=== PATIENT | female | born 1995 | race Caucasian/White ===

== ENCOUNTER 2017-07-25 17:07 | Emergency (ER) | payer OTHER ==
[~2017-07-25] VITALS: Ht 152.4 cm; Wt 60.3 kg
[2017-07-25 17:12] VITALS: BP 126/95
--- NOTE | 2017-07-25 17:49 | NUR ---
PT AMBULATED TO [facility]
--- NOTE | 2017-07-25 17:55 | NUR ---
PATIENT PRESENTS TO ED WITH C/O RASH ON LT SIDE OF HER ABD;PT STATES HER BOYFREIND HAS A SHINGLES AND SHE JUST WANT TO BE CHECK IF SHE'S OKAY".DENIES N/V/D; SKIN IS PINK/WARM/DRY; AAOX4 WITH EVEN AND STEADY GAIT; LUNGS CLEAR BL; HR EVEN AND REGULAR; PT DENIES ANY FEVER, CP, SOB, OR COUGH AT THIS TIME; PATIENT STATES PAIN OF 1/10 AT THIS TIME;PATIENT POSITIONED FOR COMFORT; ER MD MADE AWARE OF PT STATUS.
--- NOTE | 2017-07-25 19:16 | NUR ---
Pt report given to CHARGE NURSE CATHY. Transfer of care at this time.
[2017-07-25 19:40] VITALS: BP 17/63
--- NOTE | 2017-07-25 19:40 | NUR ---
Patient discharged with v/s stable. Written and verbal after care instructions given and explained. Patient alert, oriented and verbalized understanding of instructions. Ambulatory with steady gait. All questions addressed prior to discharge. ID band removed. Patient advised to follow up with PMD. Rx of Hydrocortizone cream given. Patient educated on indication of medication including possible reaction and side effects. Opportunity to ask questions provided and answered.
== END 2017-07-25 19:40 | disposition home or self-care (01) ==
LOC: MED 17:07
DX: L25.9 Unspecified contact dermatitis, unspecified cause (principal)
CPT/HCPCS: 99283

== ENCOUNTER 2019-03-11 13:35 | Emergency (ER) | payer OTHER ==
[~2019-03-11] VITALS: Ht 152.4 cm; Wt 63.5 kg
[2019-03-11 13:39] VITALS: BP 137/95
--- NOTE | 2019-03-11 13:45 | NUR ---
Patient in stable condition, sent back to the lobby, provided with urine cup for urine sample.
[2019-03-11 14:12] LABS: APPEARANCE,URINE CLEAR (CLEAR); BILIRUBIN,URINE 1+ (NEGATIVE); BLOOD, URINE NEGATIVE (NEGATIVE); COLOR,URINE YELLOW (YELLOW); LEUKOCYTE ESTERASE ,URINE 1+ (NEGATIVE); NITRITE, URINE NEGATIVE (NEGATIVE); UGLUCOSE NEGATIVE (NEGATIVE)
[2019-03-11 14:14] LABS: BASOPHILS % (AUTO) 0.3 % (0.0-2.0); EOSINOPHILS % (AUTO) 0.1 % (0.0-4.0); HEMATOCRIT 44.4 % (36-48); HEMOGLOBIN 14.7 g/dL (12.0-16.0); LYMPHOCYTES # (AUTO) 1.6 K/uL (2.5-16.5); LYMPHOCYTES % (AUTO) 10.6 % (20.5-51.1); MEAN CORPUSCULAR HEMOGLOBIN 29 pg (27-31); MEAN CORPUSCULAR HGB CONC 33 g/dL (33-37); MEAN CORPUSCULAR VOLUME 88.8 fL (80-94); MONOCYTES # (AUTO) 0.5 K/uL (0.8-1.0); MONOCYTES % (AUTO) 3.7 % (1.7-9.3); NEUTROPHILS # (AUTO) 12.5 K/uL (1.8-7.7); NEUTROPHILS % (AUTO) 85.3 % (42.2-75.2); PLATELET COUNT (AUTO) 284 K/uL (140-450); RED CELL DISTRIBUTION WIDTH 12.9 % (11.6-13.7); WHITE BLOOD COUNT (AUTO) 14.7 K/uL (4.8-10.8)
[2019-03-11 14:21] LABS: RBC,URINE 0-5 /HPF (0-5)
--- NOTE | 2019-03-11 14:37 | NUR ---
PT AMBULATED TO BED 02.
[2019-03-11 14:51] LABS: ANION GAP 23.1 (8-16); CREATININE 0.7 mg/dL (0.6-1.3); POTASSIUM 4.1 mmol/L (3.5-5.1)
[2019-03-11] MEDS ORDERED: NACL 0.9% 1,000 ML IV ONE (15:00)
[2019-03-11] MEDS ORDERED: diphenhydrAMINE 50 MG/ML VIAL IVP ONE (15:00)
[2019-03-11] MEDS ORDERED: METOCLOPRAMIDE 10 MG/2 ML INJ VIAL IVP ONE (15:00)
--- NOTE | 2019-03-11 15:02 | NUR ---
pt bib freind to n/v since last two days. pt is 24F c/o constant n/v x 2 days. per pt, she Has not been able to keep down water since last two days. No pain, chills or fever at this time. denies any vomiting. pt seen by er md. First at 7 weeks per patient. will continue to monitor pt. Hx- none Rx- none NKA
[2019-03-11 16:35] VITALS: BP 137/81
--- NOTE | 2019-03-11 16:35 | NUR ---
Patient discharged with v/s stable. Written and verbal after care instructions given and explained. Patient alert, oriented and verbalized understanding of instructions. Ambulatory with steady gait. All questions addressed prior to discharge. ID band removed. Patient advised to follow up with PMD. Rx of MACROBID, DICLEGIS given. Patient educated on indication of medication including possible reaction and side effects. Opportunity to ask questions provided and answered.
== END 2019-03-11 16:35 | disposition home or self-care (01) ==
LOC: MED 13:35
DX: O23.41 Unspecified infection of urinary tract in pregnancy, first trimester (principal); O21.0 Mild hyperemesis gravidarum; Z3A.01 Less than 8 weeks gestation of pregnancy
CPT/HCPCS: 36415; 76801; 80048; 81001; 84702; 85025; 86900; 86901; 87086; 96374; 96375; 99284; J1200; J2765; J7030; Q0092

== ENCOUNTER 2019-03-15 18:29 | Inpatient (IN) | payer OTHER ==
[~2019-03-15] VITALS: Ht 152.4 cm; Wt 59.9 kg
[2019-03-15 18:40] VITALS: BP 130/93
[2019-03-15] MEDS ORDERED: METOCLOPRAMIDE 10 MG/2 ML INJ VIAL IVP ONE (19:10)
[2019-03-15] MEDS ORDERED: NACL 0.9% 2,000 ML IV ONE (19:10)
[2019-03-15] MEDS ORDERED: diphenhydrAMINE 50 MG/ML VIAL IVP ONE (19:10)
[2019-03-15 19:12] LABS: BASOPHILS # (AUTO) 0.1 K/uL (0.00-0.22); BASOPHILS % (AUTO) 0.7 % (0.0-2.0); EOSINOPHILS % (AUTO) 0.1 % (0.0-4.0); HEMATOCRIT 47.1 % (36-48); HEMOGLOBIN 15.8 g/dL (12.0-16.0); LYMPHOCYTES # (AUTO) 1.3 K/uL (2.5-16.5); MEAN CORPUSCULAR HEMOGLOBIN 30 pg (27-31); MEAN CORPUSCULAR HGB CONC 34 g/dL (33-37); MEAN CORPUSCULAR VOLUME 88.2 fL (80-94); MONOCYTES # (AUTO) 0.9 K/uL (0.8-1.0); MONOCYTES % (AUTO) 6.1 % (1.7-9.3); NEUTROPHILS # (AUTO) 12.2 K/uL (1.8-7.7); NEUTROPHILS % (AUTO) 84.1 % (42.2-75.2); PLATELET COUNT (AUTO) 283 K/uL (140-450); RED BLOOD CELL COUNT(AUTO) 5.34 MIL/uL (4.20-5.40); WHITE BLOOD COUNT (AUTO) 14.5 K/uL (4.8-10.8)
[2019-03-15 19:18] LABS: APPEARANCE,URINE CLEAR (CLEAR); BILIRUBIN,URINE 1+ (NEGATIVE); BLOOD, URINE TRACE-I (NEGATIVE); COLOR,URINE YELLOW (YELLOW); LEUKOCYTE ESTERASE ,URINE 2+ (NEGATIVE); NITRITE, URINE NEGATIVE (NEGATIVE); UGLUCOSE NEGATIVE (NEGATIVE)
--- NOTE | 2019-03-15 19:20 | NUR ---
24 Y/O F PRESENTS TO ER C/O N/V X 1 WEEK. PT IS 7 WEEKS . PT IS RECEIVING CARE. DENIES VAGINAL BLEEDING. PT HAS VAGINAL DISCHARGE, WHITE, THICK. PT WAS SEEN HERE AT [facility] LAST FRIDAY AND WAS PRESCRIBED ANTINAUSEA MED AND ANTIBIOTICS FOR UTI. PT UNABLE TO HOLD DOWN ANY MEDICATION. PT DENIES DIARRHEA. PT DENIES PAIN. PAIN LEVEL 0/10. NKA. NO MED HX. SAFETY MEASURES IN PLACE. WAITING FOR ERMD TO EVALUATE PT.
--- NOTE | 2019-03-15 19:20 | NUR ---
24 Y/O F PRESENTS TO ER C/O N/V X 1 WEEK. PT IS 7 WEEKS . PT IS RECEIVING CARE. DENIES VAGINAL BLEEDING. PT HAS VAGINAL DISCHARGE, WHITE, THICK. PT WAS SEEN HERE AT [facility] LAST FRIDAY AND WAS PRESCRIBED ANTINAUSEA MED AND ANTIBIOTICS. PT UNABLE TO HOLD DOWN ANY MEDICATION. PT DENIES DIARRHEA. PT DENIES PAIN. PAIN LEVEL 0/10. NKA. NO MED HX. SAFETY MEASURES IN PLACE. WAITING FOR ERMD TO EVALUATE PT.
[2019-03-15 19:22] LABS: ANION GAP 26.7 (8-16); CARBON DIOXIDE 15.8 mmol/L (21-32); CREATININE 0.9 mg/dL (0.6-1.3); POTASSIUM 3.5 mmol/L (3.5-5.1)
[2019-03-15 19:28] LABS: ALBUMIN 4.8 g/dL (3.4-5.0); TOTAL BILIRUBIN 1.1 mg/dL (0.0-1.0)
[2019-03-15 19:41] LABS: RBC,URINE NONE SEEN /HPF (0-5)
[2019-03-15] MEDS ORDERED: LACTATED RINGERS 1,000 ML IV SCH (20:10)
[2019-03-15] MEDS ORDERED: DEXT 5% IV ONE (20:15)
[2019-03-15] MEDS ORDERED: NACL 0.45% IV ONE (20:15)
[2019-03-15] MEDS ORDERED: POTASSIUM CHLORIDE IV ONE (20:15)
[2019-03-15] MEDS ORDERED: POTASSIUM CHL 20 MEQ/D5-1/2NS 1,000 ML IV ONE (20:39)
[2019-03-15] MEDS ORDERED: cefTRIAXone 1,000 MG VIAL ONE (20:49)
--- NOTE | 2019-03-15 21:00 | NUR ---
PT RESTING AT BEDSIDE. VSS. WILL CONTINUE TO MONITOR.
[2019-03-15] MEDS ORDERED: ACETAMINOPHEN 325 MG TAB PO PRN (21:35)
[2019-03-15] MEDS ORDERED: DOCUSATE SODIUM 100 MG GELCAP PO PRN (21:35)
[2019-03-15] MEDS ORDERED: ONDANSETRON 4 MG/2 ML VIAL IM/IVP PRN (21:35)
--- NOTE | 2019-03-15 22:05 | NUR ---
Transfer of care and report given to ABRAHAM Marie
--- NOTE | 2019-03-15 22:05 | NUR ---
Patient will be admitted to care of Dr. Meraz. Admited to Telemetry. Will go to [id number]. Belongings list completed. Report to ABRAHAM Marie.
--- NOTE | 2019-03-15 22:06 | NUR ---
ADMITTED THIS 24 YEAR OLD FEMALE FROM ER PER ARANZA WITH CC OF N/V X1 WEEK, AMBULATED TO BED WITH STEADY GAIT, VITAL SIGNS STABLE, DENIES ANY N/V AT THIS TIME, ORIENTED TO ROOM AND CALL LIGHT, IVF OF LR FROM ER INFUSING WIDE OPEN, PLAN OF CARE DISCUSSED, INSTRUCTED NPO AT THIS TIME, SAFETY MEASURES IN PLACE, CALL LIGHT WITHIN REACH.
[2019-03-15] MEDS ORDERED: METOCLOPRAMIDE 10 MG/2 ML INJ VIAL IVP PRN (22:20)
[2019-03-15 23:00] LABS: PROTHROMBIN TIME 10.5 secs (10.8-13.4)
[2019-03-15 23:02] LABS: CHOL/HDL RATIO 5.2 (1-4.5); FREE T4 (FREE THYROXINE) 1.38 ng/dL (0.76-1.46); MAGNESIUM 1.5 mg/dL (1.8-2.4); PHOSPHORUS 4.2 mg/dL (2.5-4.9); THYROID STIMULATING HORMONE 0.41 uIU/mL (0.34-3.74)
[2019-03-16] VITALS: BP 109/65
--- NOTE | 2019-03-16 | NUR ---
PT SLEEPING, EASILY AROUSABLE, VITAL SIGNS STABLE, DENIES N/V OR PAIN, IVF FROM ER OF D5 1/2 NS +20KCL AT 150ML/H INFUSING WELL, CONTINUE TO MONITOR CLOSELY.
[2019-03-16] MEDS ORDERED: LACTULOSE 20 GM/30 ML UDC PO SCH (01:00)
[2019-03-16] MEDS ORDERED: MAG SULF 2000 MG/WATER PREMIX 50 ML IV SCH (01:00)
--- NOTE | 2019-03-16 01:00 | NUR ---
ONE TIME DOSE OF MAG RIDER AND LACTULOSE ADMINISTERED WITH EDUCATION PROVIDED, TOLERATED WELL, PT REQUESTING FOR ICE CHIPS, DR MUNGUIA STATED OK FOR PT TO HAVE SOME ICE CHIPS, ALL NEEDS ATTENDED.
--- NOTE | 2019-03-16 02:30 | NUR ---
PT AMBULATED TO BR WITH STEADY GAIT, VOIDED FREELY, DENIES ANY N/V OR PAIN, MONITORED CLOSELY.
[2019-03-16] MEDS ORDERED: DEXT 5% / NACL 0.45% 1,000 ML IV SCH (03:00)
--- NOTE | 2019-03-16 04:00 | NUR ---
PT SLEEPING, EASILY AROUSABLE, VITAL SIGNS STABLE, DENIES ANY N/V OR PAIN, IVF INFUSING WELL, MAINTAIN ON NPO, MONITORED CLOSELY.
[2019-03-16 04:35] VITALS: BP 113/71
[2019-03-16 06:36] LABS: CARBON DIOXIDE 21.2 mmol/L (21-32); CREATININE 0.7 mg/dL (0.6-1.3); POTASSIUM 3.2 mmol/L (3.5-5.1)
[2019-03-16 06:46] LABS: BASOPHILS # (AUTO) 0.1 K/uL (0.00-0.22); BASOPHILS % (AUTO) 0.6 % (0.0-2.0); EOSINOPHILS # (AUTO) 0.1 K/uL (0-0.4); EOSINOPHILS % (AUTO) 0.7 % (0.0-4.0); HEMATOCRIT 36.4 % (36-48); HEMOGLOBIN 12.3 g/dL (12.0-16.0); LYMPHOCYTES # (AUTO) 2.2 K/uL (2.5-16.5); LYMPHOCYTES % (AUTO) 20.5 % (20.5-51.1); MEAN CORPUSCULAR HEMOGLOBIN 30 pg (27-31); MEAN CORPUSCULAR HGB CONC 34 g/dL (33-37); MEAN CORPUSCULAR VOLUME 88.7 fL (80-94); MONOCYTES # (AUTO) 1.2 K/uL (0.8-1.0); MONOCYTES % (AUTO) 10.7 % (1.7-9.3); NEUTROPHILS # (AUTO) 7.3 K/uL (1.8-7.7); NEUTROPHILS % (AUTO) 67.5 % (42.2-75.2); PLATELET COUNT (AUTO) 209 K/uL (140-450); RED CELL DISTRIBUTION WIDTH 12.7 % (11.6-13.7); WHITE BLOOD COUNT (AUTO) 10.9 K/uL (4.8-10.8)
[2019-03-16 06:54] LABS: MAGNESIUM 1.9 mg/dL (1.8-2.4); PHOSPHORUS 2.5 mg/dL (2.5-4.9)
--- NOTE | 2019-03-16 07:16 | NUR ---
PT SLEEPING, EASILY AROUSABLE, NO DISTRESS NOTED, REPORT GIVEN TO RN DAVID FOR CONTINUITY OF CARE.
--- NOTE | 2019-03-16 07:17 | NUR ---
Received bedside report from pm nurse Antione. Pt resting in bed, aaox4, no signs of distress, no c/o discomfort. Left AC IV intact with ongoing NS @ 130ml/h. Bed alarm on. Call light within reach. Addendum: 03/16/19 at 0809 by Chikis Lubin RN Charted on wrong pt. Pls omit above note.
--- NOTE | 2019-03-16 07:17 | NUR ---
Received bedside report from pm nurse Frank. Pt resting in bed, aaox4, no c/o discomfort, no signs of distress. Left AC IV intact with ongoing D5 1/2 NS @ 60ml/h. Ice chips provided per pt request. Call light within reach.
--- NOTE | 2019-03-16 07:50 | NUR ---
Dr. Brito at bedside to assess pt. install technician at bedside as well. Pt resting in bed, no signs of distress. Call light within reach.
[2019-03-16 07:55] VITALS: BP 103/70
--- NOTE | 2019-03-16 08:24 | NUR ---
PATIENT HAS BEEN SCREENED AND CATEGORIZED HIGH NUTRITION RISK. PATIENT WILL BE SEEN WITHIN 1-2 DAYS OF ADMISSION. 03/16/19-03/17/[address]
[2019-03-16] MEDS: NACL 0.45% 1,000 ML IV SCH (09:05)
[2019-03-16] MEDS: MULTIVIT/MIN/CA/FE/FA 1 TAB PO SCH (09:09)
[2019-03-16] MEDS: LACTOBACILLUS RHAMNOSUS GG 1 EACH CAP PO SCH (09:09)
--- NOTE | 2019-03-16 09:09 | NUR ---
Pt c/o mild nausea, no episode of vomiting. Zofran administered & ice chips provided. Left AC IV intact with ongoing D5 1/2NS @ 60ml/h. Call light within reach.
[2019-03-16] MEDS ORDERED: POTASSIUM CHLORIDE 10 MEQ TABER PO SCH (09:15)
--- NOTE | 2019-03-16 10:00 | NUR ---
No c/o nausea at this time. Pt resting in bed, watchign TV, no signs of distress.
--- NOTE | 2019-03-16 10:30 | NUR ---
SEVERAL ATTEMPTS FOR ABG WERE MADE UNABLE TO OBTAIN AT THIS TIME, INFORMED AND WILL TRY LATER
[2019-03-16 12:00] VITALS: BP 113/57
[2019-03-16] MEDS ORDERED: ONDANSETRON 4 MG/2 ML VIAL IVP PRN ×2 (13:40→14:10)
--- NOTE | 2019-03-16 15:41 | NUR ---
03/16/19 RD INITIAL ASSESSMENT COMPLETED PLEASE REFER TO NUTRITION ASSESSMENT UNDER CARE ACTIVITY FOR ESTIMATED NUTRITIONAL NEEDS. 1. CONTINUE CLEAR LIQUID DIET TOLERATED 2. IF/WHEN MEDIALLY STABLE TO BEGIN NUTRITION, ADVANCE DIET TOLERATED TO REGULAR DIET 3. NUTRITION EDUCATION ON A CHOLESTEROL LOWERING DIET AND MORNING SICKNESS WERE GIVEN TO PATIENT 4. RD TO FOLLOW-UP 2-3 DAYS, HIGH RISK JULIANA BANGURA, RD
[2019-03-16 16:00] VITALS: BP 115/74
--- NOTE | 2019-03-16 16:21 | NUR ---
Pt resting in bed, watching TV, no signs of distress, no c/o discomfort. Sister at bedside visiting pt. Pt verbalized she felt slightly nauseated about an hour earlier but says "it went away on its own." No nausea at this time. Left AC IV intact with ongoing 1/2 NS @ 60ml/h. Call light within reach.
[2019-03-16] MEDS: ONDANSETRON 4 MG ODT SL PRN (17:28)
--- NOTE | 2019-03-16 17:28 | NUR ---
Pt c/o slight nausea. Zofran ODT administered. Ice chips provided. Call light within reach.
--- NOTE | 2019-03-16 18:30 | NUR ---
Pt sitting up in bed, eating dinner. No c/o nausea, no episode of vomiting. Able to fredrick regular texture food well. Family at bedside.
--- NOTE | 2019-03-16 19:20 | NUR ---
Bedside report given to pm nurse Kisses. Pt in no distress. Family at bedside.
--- NOTE | 2019-03-16 19:30 | NUR ---
RECEIVED BEDSIDE REPORT FROM DAY SHIFT NURSE. PATIENT IS AWAKE AND COOPERATIVE. RESPIRATION EVEN UNLABORED ON ROOM AIR. NO DISTRESS NOTED. SKIN IS WARM AND DRY. IV PATENT AND INTACT. PLAN OF CARE WAS DISCUSSED. FAMILY AT BEDSIDE. ALL SAFETY MEASURES IN PLACE. BED IS AT LOW POSITION. CALL LIGHT WITHIN REACH AND VERBALIZES ITS USE. WILL CONTINUE TO MONITOR.
[2019-03-16 20:00] VITALS: BP 108/72
--- NOTE | 2019-03-16 20:15 | NUR ---
INITIAL ASSESSMENT DONE. VITALS WERE TAKEN. PATIENT IN STABLE CONDITION. NO DISTRESS NOTED. WILL CONTINUE TO MONITOR.
[2019-03-16] MEDS ORDERED: DOCUSATE SODIUM 100 MG GELCAP PO SCH (21:00)
--- NOTE | 2019-03-16 21:00 | NUR ---
ALL SCHEDULED MEDS WERE GIVEN PER ORDER. NO ASE NOTED. WILL CONTINUE TO MONITOR.
--- NOTE | 2019-03-16 22:00 | NUR ---
PATIENT COMPLAINED OF FEELING NAUSEOUS. PRN REGLAN ADMINISTERED PER ORDER. WILL CONTINUE TO MONITOR.
--- NOTE | 2019-03-16 22:50 | NUR ---
CHECKED PATIENT. PATIENT SLEEPING RESPIRATION EVEN UNLABORED ON ROOM AIR. NO DISTRESS NOTED. WILL CONTINUE TO MONITOR.
[2019-03-17] VITALS: BP 112/63
--- NOTE | 2019-03-17 | NUR ---
VITALS WERE TAKEN. PATIENT IN STABLE CONDITION. NO DISTRESS NOTED. WILL CONTINUE TO MONITOR.
[2019-03-17] MEDS: NACL 0.45% 1,000 ML IV SCH ×2 (01:45→06:53)
--- NOTE | 2019-03-17 02:16 | NUR ---
CHECKED PATIENT. PATIENT SLEEPING RESPIRATION EVEN UNLABORED ON ROOM AIR. NO DISTRESS NOTED. WILL CONTINUE TO MONITOR.
[2019-03-17 04:00] VITALS: BP 102/59
--- NOTE | 2019-03-17 04:00 | NUR ---
VITALS WERE TAKEN. PATIENT IN STABLE CONDITION. NO DISTRESS NOTED. WILL CONTINUE TO MONITOR.
[2019-03-17 06:07] LABS: T4 (THYROXINE) 10.8 ug/dL (4.5-12.0)
[2019-03-17 06:33] LABS: ANION GAP 11.3 (8-16); CARBON DIOXIDE 23.8 mmol/L (21-32); CREATININE 0.5 mg/dL (0.6-1.3); POTASSIUM 3.1 mmol/L (3.5-5.1)
[2019-03-17 06:51] LABS: BASOPHILS # (AUTO) 0.1 K/uL (0.00-0.22); BASOPHILS % (AUTO) 0.8 % (0.0-2.0); EOSINOPHILS # (AUTO) 0.1 K/uL (0-0.4); EOSINOPHILS % (AUTO) 1.3 % (0.0-4.0); HEMATOCRIT 34.7 % (36-48); HEMOGLOBIN 11.5 g/dL (12.0-16.0); LYMPHOCYTES # (AUTO) 2.4 K/uL (2.5-16.5); LYMPHOCYTES % (AUTO) 27.6 % (20.5-51.1); MEAN CORPUSCULAR HEMOGLOBIN 30 pg (27-31); MEAN CORPUSCULAR HGB CONC 33 g/dL (33-37); MEAN CORPUSCULAR VOLUME 89.6 fL (80-94); MONOCYTES # (AUTO) 0.8 K/uL (0.8-1.0); NEUTROPHILS # (AUTO) 5.4 K/uL (1.8-7.7); NEUTROPHILS % (AUTO) 61.3 % (42.2-75.2); PLATELET COUNT (AUTO) 181 K/uL (140-450); RED BLOOD CELL COUNT(AUTO) 3.87 MIL/uL (4.20-5.40); RED CELL DISTRIBUTION WIDTH 13.1 % (11.6-13.7); WHITE BLOOD COUNT (AUTO) 8.8 K/uL (4.8-10.8)
--- NOTE | 2019-03-17 07:12 | NUR ---
ENDORSED PATIENT TO DAY SHIFT NURSE. PATIENT IN STABLE CONDITION.
--- NOTE | 2019-03-17 07:13 | NUR ---
PT RECEIVED FROM NIGHT RN. PT SLEEPING IN BED, BREATHING EVEN AND UNLABORED ON ROOM AIR. NO SIGNS OF ACUTE DISTRESS AT THIS TIME. WILL CONTINUE CARE.
[2019-03-17 08:00] VITALS: BP 102/61
[2019-03-17] MEDS: LACTOBACILLUS RHAMNOSUS GG 1 EACH CAP PO SCH (08:11)
[2019-03-17] MEDS: MULTIVIT/MIN/CA/FE/FA 1 TAB PO SCH (08:11)
[2019-03-17] MEDS: POTASSIUM CHLORIDE 10 MEQ TABER PO SCH ×3 (08:22→17:53)
--- NOTE | 2019-03-17 08:24 | NUR ---
PT IN BED. AAOX4. BREATHING EVEN AND UNLABORED ON ROOM AIR. PT DENIES NAUSEA AT THIS TIME. PT RECEIVED ORDERED MORNING MEDICATIONS AND TOLERATED THEM WELL. 20 G IV TO R AC RUNNING 1/2 NA AT 60 ML/HR IS PATENT AND SITE IS ASYMPTOMATIC. PT BREAKFAST AT BEDSIDE AND PT WILL EAT. WILL CONTINUE TO ASSESS PT FOR CHANGES IN CONDITION. NO SIGNS OF ACUTE DISTRESS AT THIS TIME.
--- NOTE | 2019-03-17 08:47 | NUR ---
PT REPORTED iv WAS LEAKING. PT IV FLUSHED AND LEAKED AT INSERTION SITE. 20 G IV TO L AC REMOVED, CATHETER INTACT. WILL REESTABLISH IV SITE.
[2019-03-17] MEDS: ONDANSETRON 4 MG ODT SL PRN ×2 (09:40→17:53)
--- NOTE | 2019-03-17 09:40 | NUR ---
PT REPORTED NAUSEA. ORDERED SUBLINGUAL ZOFRAN 4MG ADMINISTERED. WILL CONTINUE TO ASSESS PT FOR EFFECTIVENESS OF MEDICATION.
[2019-03-17 09:50] LABS: MAGNESIUM 1.4 mg/dL (1.8-2.4)
--- NOTE | 2019-03-17 10:03 | NUR ---
22 G IV TO R FOREARM PLACED, SECOND ATTEMPT. / NS AT 60ML/HR RESUMED. WILL CONTINUE TO MONITOR PATIENT.
--- NOTE | 2019-03-17 10:46 | NUR ---
PT IN BED, VISITOR AT BEDSIDE. PT DENIES NAUSEA. IV INFUSING 1/2 NS AT 60 ML/HR, SITE ASYMPTOMATIC. PT REMINDED HOW CALL LIGHT WORKS. NO SIGNS OF ACUTE DISTRESS AT THIS TIME. WILL CONTINUE TO ASSESS FOR CHANGES IN CONDITION.
[2019-03-17 12:00] VITALS: BP 101/71
[2019-03-17] MEDS ORDERED: ONDA8TAB PO (13:03)
[2019-03-17] MEDS ORDERED: MAGNESIUM OXIDE 400 MG TAB PO SCH (13:15)
--- NOTE | 2019-03-17 13:37 | NUR ---
PT RECEIVED ORDERED MAG OX 800 MG FOR MG 1.4 AND ORDERED K-DUR FOR POTASSIUM 3.1. PT IN BED AAOX4. PT DENIES NAUSEA AT THIS TIME. NO SIGNS OF ACUTE DISTRESS AT THIS TIME. BREATHING EVEN AND UNLABORED ON ROM AIR. WILL CONTINUE TO ASSESS FOR CHANGES IN CONDITION.
[2019-03-17] MEDS ORDERED: METO-485 PO (13:49)
[2019-03-17] MEDS ORDERED: NITR100C7 PO (13:51)
[2019-03-17] MEDS ORDERED: LACT-81 PO (13:51)
[2019-03-17 14:05] LABS: BASOPHILS # (AUTO) 0.1 K/uL (0.00-0.22); BASOPHILS % (AUTO) 0.7 % (0.0-2.0); EOSINOPHILS # (AUTO) 0.1 K/uL (0-0.4); EOSINOPHILS % (AUTO) 0.7 % (0.0-4.0); HEMATOCRIT 36.3 % (36-48); LYMPHOCYTES # (AUTO) 2.1 K/uL (2.5-16.5); LYMPHOCYTES % (AUTO) 22.6 % (20.5-51.1); MEAN CORPUSCULAR HEMOGLOBIN 30 pg (27-31); MEAN CORPUSCULAR HGB CONC 33 g/dL (33-37); MONOCYTES # (AUTO) 0.7 K/uL (0.8-1.0); MONOCYTES % (AUTO) 7.3 % (1.7-9.3); NEUTROPHILS # (AUTO) 6.2 K/uL (1.8-7.7); NEUTROPHILS % (AUTO) 68.7 % (42.2-75.2); PLATELET COUNT (AUTO) 192 K/uL (140-450); RED BLOOD CELL COUNT(AUTO) 4.08 MIL/uL (4.20-5.40); RED CELL DISTRIBUTION WIDTH 13.1 % (11.6-13.7); WHITE BLOOD COUNT (AUTO) 9.1 K/uL (4.8-10.8)
[2019-03-17 14:47] LABS: ALBUMIN 3.2 g/dL (3.4-5.0); ANION GAP 10.7 (8-16); CARBON DIOXIDE 25.9 mmol/L (21-32); CREATININE 0.6 mg/dL (0.6-1.3); POTASSIUM 3.6 mmol/L (3.5-5.1); TOTAL BILIRUBIN 0.7 mg/dL (0.0-1.0)
[2019-03-17 16:00] VITALS: BP 112/63
[2019-03-17 16:54] VITALS: BP 112/68
--- NOTE | 2019-03-17 18:00 | NUR ---
pt given discharge instructions with packet. Pt verbalized understanding regarding follow-up with Dr Brito and Dr Meraz. 22 g iv to r ac removed catheter intact. all belonging with pt
== END 2019-03-17 16:15 | disposition home or self-care (01) | DRG 832 ==
LOC: MED 18:29 → MMU 21:35
PROVIDERS: ADMIT Family Medicine; ATTEND Family Medicine
DX: O21.1 Hyperemesis gravidarum with metabolic disturbance (principal); O23.41 Unspecified infection of urinary tract in pregnancy, first trimester; E72.20 Disorder of urea cycle metabolism, unspecified; O99.281 Endocrine, nutritional and metabolic diseases complicating pregnancy, first trimester; R74.0 Nonspecific elevation of levels of transaminase and lactic acid dehydrogenase [LDH]; E83.42 Hypomagnesemia; E78.5 Hyperlipidemia, unspecified; E86.0 Dehydration; Z3A.01 Less than 8 weeks gestation of pregnancy; Z82.49 Family history of ischemic heart disease and other diseases of the circulatory system
CPT/HCPCS: 36415; 76705; 76801; 80048; 80053; 81001; 82140; 82150; 82803; 83036; 83605; 83690; 83735; 83880; 84100; 84436; 84439; 84443; 84479; 84484; 84702; 85025; 85610; 85730; 87040; 87081; 87086; 96361; 96374; 96375; 99285; J0696; J1200; J2405; J2765; J3475; J3480; J7060; Q0092; Q0162

== ENCOUNTER 2019-03-26 15:14 | Emergency (ER) | payer OTHER ==
[~2019-03-26] VITALS: Ht 152.4 cm; Wt 58.1 kg
[~2019-03-26 15:14] MED LIST: LACT-81 PO; METO-485 PO; NITR100C7 PO; ONDA8TAB PO
[2019-03-26 15:32] VITALS: BP 135/87
--- NOTE | 2019-03-26 15:37 | NUR ---
PT TAKEN TO BED 3.
--- NOTE | 2019-03-26 15:40 | NUR ---
C/O N/V X2-3 WEEKS. PT REPORTS BEING APPROX. 8 WEEKS PREG. DENIES VAGINAL BLEEDING/ABD PAIN. PT IS TACHYCARDIC AT 122 BPM.A/O X4 FOLLOWS COMMANDS; BREATHING UNLABORED AND SYMMETRICAL. PATIENT STATES THAT SHE HAS NAUSEA AND VOMITING. ERMD MADE AWARE. SIDE RAILSX1. PLACED ON MONITOR HX: NONE RX: NONE
[2019-03-26] MEDS: NACL 0.9% 1,000 ML IV ONE ×2 (15:45→16:21)
[2019-03-26] MEDS ORDERED: NACL 0.9% 1,000 ML IV ONE (16:20)
[2019-03-26] MEDS ORDERED: ONDANSETRON 4 MG ODT PO ONE (16:50)
[2019-03-26 16:51] LABS: BASOPHILS % (AUTO) 0.4 % (0.0-2.0); EOSINOPHILS # (AUTO) 0.1 K/uL (0-0.4); EOSINOPHILS % (AUTO) 0.7 % (0.0-4.0); HEMATOCRIT 42.6 % (36-48); HEMOGLOBIN 14.1 g/dL (12.0-16.0); LYMPHOCYTES # (AUTO) 1.1 K/uL (2.5-16.5); LYMPHOCYTES % (AUTO) 12.5 % (20.5-51.1); MEAN CORPUSCULAR HEMOGLOBIN 30 pg (27-31); MEAN CORPUSCULAR HGB CONC 33 g/dL (33-37); MEAN CORPUSCULAR VOLUME 89.6 fL (80-94); MONOCYTES # (AUTO) 0.7 K/uL (0.8-1.0); MONOCYTES % (AUTO) 7.2 % (1.7-9.3); NEUTROPHILS # (AUTO) 7.1 K/uL (1.8-7.7); NEUTROPHILS % (AUTO) 79.2 % (42.2-75.2); PLATELET COUNT (AUTO) 257 K/uL (140-450); RED BLOOD CELL COUNT(AUTO) 4.75 MIL/uL (4.20-5.40); RED CELL DISTRIBUTION WIDTH 13.3 % (11.6-13.7)
[2019-03-26 17:01] LABS: APPEARANCE,URINE HAZY (CLEAR); BILIRUBIN,URINE NEGATIVE (NEGATIVE); BLOOD, URINE TRACE-L (NEGATIVE); COLOR,URINE YELLOW (YELLOW); LEUKOCYTE ESTERASE ,URINE 2+ (NEGATIVE); NITRITE, URINE NEGATIVE (NEGATIVE); UGLUCOSE NEGATIVE (NEGATIVE)
[2019-03-26 17:03] LABS: ANION GAP 26.6 (8-16); CARBON DIOXIDE 15.4 mmol/L (21-32); CREATININE 0.7 mg/dL (0.6-1.3)
[2019-03-26 17:09] LABS: ALBUMIN 4.2 g/dL (3.4-5.0); TOTAL BILIRUBIN 0.6 mg/dL (0.0-1.0)
[2019-03-26 17:27] LABS: RBC,URINE 0-5 /HPF (0-5)
--- NOTE | 2019-03-26 18:07 | NUR ---
PATIENT IN NO DISTRESS AT THIS TIME. MOTHER AT BEDSIDE. WILL CONTINUE TO MONITOR.
--- NOTE | 2019-03-26 18:32 | NUR ---
ANOTHER FLUID BOLUS STARTED
[2019-03-26 18:50] VITALS: BP 123/81
--- NOTE | 2019-03-26 18:50 | NUR ---
Patient discharged with v/s stable. Written and verbal after care instructions given and explained. Patient alert, oriented and verbalized understanding of instructions. Ambulatory with steady gait. All questions addressed prior to discharge. ID band removed. Patient advised to follow up with EAR NOSE THROAT PHYSICIAN. Rx of ZOFRAN given. Patient educated on indication of medication including possible reaction and side effects. Opportunity to ask questions provided and answered. PT GIVEN COPY OF LAB AND US RESULTS TO TAKE TO EAR NOSE THROAT PHYSICIAN
== END 2019-03-26 18:50 | disposition home or self-care (01) ==
LOC: MED 15:14
DX: O21.8 Other vomiting complicating pregnancy (principal); Z3A.08 8 weeks gestation of pregnancy; Z79.899 Other long term (current) drug therapy; Z79.2 Long term (current) use of antibiotics
CPT/HCPCS: 36415; 76817; 80053; 81001; 81025; 84702; 85025; 86900; 86901; 87086; 96360; 96361; 99284; J7030; Q0092; Q0162

== ENCOUNTER 2019-05-30 17:24 | Emergency (ER) | payer OTHER ==
[~2019-05-30] VITALS: Ht 152.4 cm; Wt 56.8 kg
[2019-05-30 17:40] VITALS: BP 109/57
--- NOTE | 2019-05-30 17:48 | NUR ---
WAIT AT LOBBY
--- NOTE | 2019-05-30 19:28 | NUR ---
24 Y/O FEMALE C/O VOMITING X 3 DAYS. 18 WEEKS . LMP 01/23/19. [id number]. A/OX4 FOLLOWS COMMANDS; BREATHING UNLABORED AND SYMMETRICAL. PAIN IS 5/10. PATIENT IS ABLE TO AMBULATE. NO NAUSEA AND VOMITING AT THIS TIME. ERMD MADE AWARE OF STATUS. SIDE RAILSX1. WILL CONTINUE TO MONITOR. MED HX: DENIES RX: DENIES NKDA
--- NOTE | 2019-05-30 19:28 | NUR ---
PT AMBULATED TO BED 09
[2019-05-30 19:56] LABS: BASOPHILS # (AUTO) 0.1 K/uL (0.00-0.22); BASOPHILS % (AUTO) 0.8 % (0.0-2.0); EOSINOPHILS # (AUTO) 0.1 K/uL (0-0.4); EOSINOPHILS % (AUTO) 0.6 % (0.0-4.0); LYMPHOCYTES # (AUTO) 1.7 K/uL (2.5-16.5); LYMPHOCYTES % (AUTO) 14.9 % (20.5-51.1); MEAN CORPUSCULAR HEMOGLOBIN 31 pg (27-31); MEAN CORPUSCULAR HGB CONC 33 g/dL (33-37); MEAN CORPUSCULAR VOLUME 91.7 fL (80-94); MONOCYTES # (AUTO) 0.6 K/uL (0.8-1.0); MONOCYTES % (AUTO) 5.4 % (1.7-9.3); NEUTROPHILS # (AUTO) 8.9 K/uL (1.8-7.7); NEUTROPHILS % (AUTO) 78.3 % (42.2-75.2); PLATELET COUNT (AUTO) 241 K/uL (140-450); RED BLOOD CELL COUNT(AUTO) 3.93 MIL/uL (4.20-5.40); RED CELL DISTRIBUTION WIDTH 13.9 % (11.6-13.7); WHITE BLOOD COUNT (AUTO) 11.3 K/uL (4.8-10.8)
[2019-05-30] MEDS ORDERED: NACL 0.9% 1,000 ML IV ONE (20:00)
[2019-05-30] MEDS ORDERED: METOCLOPRAMIDE 10 MG/2 ML INJ VIAL IVP ONE (20:00)
[2019-05-30 20:16] LABS: APPEARANCE,URINE SL CLOUDY (CLEAR); BILIRUBIN,URINE NEGATIVE (NEGATIVE); BLOOD, URINE NEGATIVE (NEGATIVE); COLOR,URINE AMBER (YELLOW); LEUKOCYTE ESTERASE ,URINE 3+ (NEGATIVE); NITRITE, URINE NEGATIVE (NEGATIVE); UGLUCOSE NEGATIVE (NEGATIVE)
[2019-05-30 20:19] LABS: ANION GAP 15.3 (8-16); CREATININE 0.6 mg/dL (0.6-1.3); POTASSIUM 3.3 mmol/L (3.5-5.1)
[2019-05-30 20:50] LABS: RBC,URINE 0-5 /HPF (0-5); WBC,URINE 60-80 /HPF (0-5)
--- NOTE | 2019-05-30 21:22 | NUR ---
Dr. Dash examining patient.
[2019-05-30 21:30] VITALS: BP 106/98
== END 2019-05-30 21:30 | disposition home or self-care (01) ==
LOC: MED 17:24
DX: O23.42 Unspecified infection of urinary tract in pregnancy, second trimester (principal); O99.512 Diseases of the respiratory system complicating pregnancy, second trimester; O21.0 Mild hyperemesis gravidarum; R05 Cough; R50.9 Fever, unspecified; R09.81 Nasal congestion; Z3A.18 18 weeks gestation of pregnancy; Z60.2 Problems related to living alone; Z79.899 Other long term (current) drug therapy
CPT/HCPCS: 36415; 76805; 80048; 81001; 81025; 84702; 85025; 86900; 86901; 87086; 96361; 96374; 99284; J2765; J7030; Q0092

== ENCOUNTER → 2019-08-06 | Outpatient (CLI) | payer OTHER ==
[2019-08-06 12:11] LABS: BASOPHILS % (AUTO) 0.5 % (0.0-2.0); EOSINOPHILS # (AUTO) 0.1 K/uL (0-0.4); EOSINOPHILS % (AUTO) 1.2 % (0.0-4.0); HEMATOCRIT 29.4 % (36-48); HEMOGLOBIN 9.6 g/dL (12.0-16.0); LYMPHOCYTES # (AUTO) 1.5 K/uL (2.5-16.5); LYMPHOCYTES % (AUTO) 14.8 % (20.5-51.1); MEAN CORPUSCULAR HEMOGLOBIN 28 pg (27-31); MEAN CORPUSCULAR HGB CONC 33 g/dL (33-37); MEAN CORPUSCULAR VOLUME 87.1 fL (80-94); MONOCYTES # (AUTO) 0.5 K/uL (0.8-1.0); NEUTROPHILS # (AUTO) 7.9 K/uL (1.8-7.7); NEUTROPHILS % (AUTO) 78.5 % (42.2-75.2); PLATELET COUNT (AUTO) 209 K/uL (140-450); RED BLOOD CELL COUNT(AUTO) 3.37 MIL/uL (4.20-5.40); RED CELL DISTRIBUTION WIDTH 13.7 % (11.6-13.7)
[2019-08-06 12:26] LABS: GLUCOSE FASTING 72 mg/dL (83-110)
[2019-08-06 13:25] LABS: GLUCOSE,1H PP 50GM DOSE 103 mg/dL (76-139)
[2019-08-07 08:32] LABS: HEPATITIS B SURFACE ANTIGEN Negative (Negative)
== END | disposition home or self-care (01) ==
LOC: MLB 10:24
DX: Z34.90 Encounter for supervision of normal pregnancy, unspecified, unspecified trimester (principal)
CPT/HCPCS: 36415; 82947; 82950; 85025; 86592; 86702; 86762; 86886; 86900; 86901; 87340

== ENCOUNTER 2020-02-28 11:20 | Emergency (ER) | payer OTHER ==
[~2020-02-28] VITALS: Ht 152.4 cm; Wt 63.5 kg
[2020-02-28 11:31] VITALS: BP 120/74
--- NOTE | 2020-02-28 11:36 | NUR ---
PATIENT IN TENT
[2020-02-28] MEDS: ACETAMINOPHEN EXTRA STRENGTH 500 MG TAB PO ONE (11:37)
--- NOTE | 2020-02-28 11:40 | NUR ---
25/F BIB FATHER C/O FEVER, COUGH,HEADACHE X3 DAYS. TEMP 102.9 , P 108, R 22, O2 SAT 97% AT THIS TIME.MED HX: DENIES. DENIES CONTACT TO PERSON WHO HAS COVID +. DENIES N/V/D; SKIN IS PINK/WARM/DRY; AAOX4 WITH EVEN AND STEADY GAIT; LUNGS CLEAR BL; HR EVEN AND REGULAR; PT DENIES ANY CP, SOB AT THIS TIME; PATIENT STATES PAIN OF 5/10 AT THIS TIME.
--- NOTE | 2020-02-28 11:48 | NUR ---
Dr Young in tent examining pt
--- NOTE | 2020-02-28 12:03 | NUR ---
Influenza and covid swab collected from pt.
[2020-02-28 12:14] VITALS: BP 124/80
[2020-02-28] MEDS: IBUPROFEN 600 MG TAB PO ONE (12:14)
--- NOTE | 2020-02-28 12:15 | NUR ---
Patient discharged with v/s stable. Written and verbal after care instructions given and explained. Patient alert, oriented and verbalized understanding of instructions. Ambulatory with steady gait. All questions addressed prior to discharge. ID band removed. Patient advised to follow up with PMD. Rx of Ibuprofen 600mg given. Patient educated on indication of medication including possible reaction and side effects. Opportunity to ask questions provided and answered.
--- NOTE | 2020-03-01 09:13 | NUR ---
+covid result received from lab, copy to be sent to Brenda at infection control and warehouse shift supervisor
== END 2020-02-28 12:15 | disposition home or self-care (01) ==
LOC: MED 11:20
DX: U07.1 COVID-19 (principal); Z79.899 Other long term (current) drug therapy
CPT/HCPCS: 87804; 99283; U0003

== ENCOUNTER 2023-03-04 11:29 | Emergency (ER) | payer OTHER ==
[~2023-03-04] VITALS: Ht 157.5 cm; Wt 65.8 kg
[~2023-03-04 11:29] MED LIST changes: -ONDA8TAB PO; +ONDA8TAB87 PO
[2023-03-04 11:48] VITALS: BP 122/78; PULSE 70; RESP 17; TEMP 97.4; O2SAT 98
[2023-03-04] MEDS ORDERED: IBUP-2213 PO (12:46)
[2023-03-04] MEDS ORDERED: ACET-2619 PO (12:46)
== END 2023-03-04 13:00 | disposition home or self-care (01) ==
LOC: MED 11:29
DX: S93.602A Unspecified sprain of left foot, initial encounter (principal); Z79.899 Other long term (current) drug therapy; W22.8XXA Striking against or struck by other objects, initial encounter; Y93.89 Activity, other specified; Y92.89 Other specified places as the place of occurrence of the external cause; Y99.8 Other external cause status
CPT/HCPCS: 73630; 99283